=== PATIENT | female | born 1930 | race Caucasian/White ===

== ENCOUNTER 2016-10-13 18:54 | Outpatient (CLI) | payer MEDICARE, OTHER | END 2016-10-13 18:55 | disposition critical access hospital (66) | DX: R42 Dizziness and giddiness (principal); R55 Syncope and collapse; R41.0 Disorientation, unspecified; R53.1 Weakness | CPT/HCPCS: A0425; A0427 ==

== ENCOUNTER 2016-10-13 19:32 | Observation (INO) | payer MEDICARE, OTHER ==
[2016-10-13] MEDS ORDERED: ONDANSETRON 4 MG/2 ML VIAL IVP PRN (21:04)
[2016-10-13] MEDS ORDERED: SODIUM CHLORIDE FLUSH 0.9% 10 ML SYRINGE IVP PRN (21:04)
[2016-10-13] MEDS ORDERED: ACETAMINOPHEN 325 MG TABLET PO PRN (21:04)
[2016-10-13] MEDS ORDERED: oxyCODONE 5 MG TABLET PO PRN (21:04)
[2016-10-13] MEDS ORDERED: SODIUM CHLORIDE 0.9% 1,000 ML IV SCH (22:00)
[2016-10-13] MEDS: SODIUM CHLORIDE FLUSH 0.9% 10 ML SYRINGE IVP SCH (22:04)
[2016-10-14] MEDS: SODIUM CHLORIDE FLUSH 0.9% 10 ML SYRINGE IVP SCH (06:32)
[2016-10-14] MEDS ORDERED: PANTOPRAZOLE 40 MG TABLET PO SCH (07:00)
[2016-10-14] MEDS ORDERED: MULTIVITAMIN TABLET PO SCH (08:00)
[2016-10-14] MEDS ORDERED: ENOXAPARIN 40 MG/0.4 ML SYRINGE SUBQ SCH (09:00)
[2016-10-14] MEDS ORDERED: NON FORMULARY MED (Multivitamin [Multiple Vitamins] 1 TAB) PO SCH (09:00)
[2016-10-14] MEDS ORDERED: POLYETHYLENE GLYCOL 3350 17 GM PACKET PO SCH (09:00)
[2016-10-14] MEDS ORDERED: ASPIRIN EC 81 MG TABLET PO SCH (09:00)
== END 2016-10-14 10:39 | disposition home or self-care (01) ==
DX: R55 Syncope and collapse (principal); E87.1 Hypo-osmolality and hyponatremia; Z86.73 Personal history of transient ischemic attack (TIA), and cerebral infarction without residual deficits; K44.9 Diaphragmatic hernia without obstruction or gangrene; D50.8 Other iron deficiency anemias; Z85.3 Personal history of malignant neoplasm of breast; Z92.21 Personal history of antineoplastic chemotherapy; Z92.3 Personal history of irradiation; Z96.653 Presence of artificial knee joint, bilateral; Z90.49 Acquired absence of other specified parts of digestive tract; Z79.82 Long term (current) use of aspirin; Z79.899 Other long term (current) drug therapy; Z79.01 Long term (current) use of anticoagulants
CPT/HCPCS: 36415; 71010; 80053; 81003; 83690; 84484; 85025; 93005; 93010; 93306; 93880; 99284; A9270; G0378

== ENCOUNTER 2017-03-29 10:08 | Outpatient (CLI) | payer MEDICARE, OTHER ==
--- NOTE | 2017-03-29 15:33 | Nuclear Medicine Report ---
EXAM: BONE SCAN EXAM DATE: 03/29/2017 02:12 PM. CLINICAL HISTORY: L BREAST CANCER. COMPARISON: None available. TECHNIQUE: Following the intravenous administration of 32.9 mCi of technetium 99m MDP and an appropri ate delay, a whole-body scan was performed in anterior and posterior projections. FINDINGS: Exam Quality: Normal overall osseous radiotracer uptake. Physiological tracer uptake in bilateral col lecting systems. Skull: No focal uptake. Thorax: No focal lesions in ribs or sternum. Pelvis: There is intensely increased radiotracer uptake in the left hip. There is moderately increase d uptake in the right hip. Spine: There is an S-shaped thoracolumbar scoliosis. There are small foci of increased uptake on the right and left side of the lower thoracic spine and lumbar spine, pattern most suggestive of degenera tive etiology. There are foci of mild uptake on the right and left side of the mid cervical spine, mo st consistent with degenerative facet uptake. Other: There is photopenia from a right knee prosthesis and what appears to be a medial compartment l eft knee prosthesis. There is increased uptake in the right and left wrist, and in the right first ri b costosternal joint, presumably degenerative. IMPRESSION: 1. Increased uptake in the bilateral hips, left greater than right. Most likely, this is degenerative and less likely metastatic. 2. S-shaped thoracolumbar scoliosis with small foci of increased uptake in the lower thoracic and lum bar spine. Most likely, these are degenerative. 3. Other foci of presumably degenerative uptake as described above. [facility] Referring Provider Line: [phone] SITE ID: [id number]
== END 2017-03-29 10:09 | disposition home or self-care (01) ==
LOC: DI 10:08
PROVIDERS: ATTEND Internal Medicine Hematology & Oncology
DX: C50.912 Malignant neoplasm of unspecified site of left female breast (principal)
CPT/HCPCS: 78306; A9503

== ENCOUNTER 2017-09-20 11:28 | Outpatient (CLI) | payer MEDICARE, OTHER | END 2017-09-20 11:29 | disposition home or self-care (01) | LOC: EMS 11:28 | PROVIDERS: ATTEND Surgery | DX: R55 Syncope and collapse (principal) ==

== ENCOUNTER 2017-10-15 08:00 | Outpatient (CLI) | payer MEDICARE, OTHER ==
[2017-10-15 18:53] LABS: BASOPHILS # (AUTO) 0.1 10^3/uL (0.0-0.1); EOSINOPHILS # (AUTO) 0.5 10^3/uL (0.0-0.7); EOSINOPHILS % (AUTO) 10.4 %; HGB - HEMOGLOBIN 13.4 g/dL (12.0-16.0); LYMPHOCYTES # (AUTO) 1.2 10^3/uL (1.5-3.5); LYMPHOCYTES % (AUTO) 23.6 %; MEAN CORPUSCULAR HEMOGLOBIN 32.9 pg (27.0-31.0); MEAN CORPUSCULAR HGB CONC 33.3 g/dL (32.0-36.0); MEAN CORPUSCULAR VOLUME 98.8 fL (81.0-99.0); MEAN PLATELET VOLUME 8.7 fL (7.9-10.8); MONOCYTES # (AUTO) 0.5 10^3/uL (0.0-1.0); MONOCYTES % (AUTO) 10.3 %; NEUTROPHILS # (AUTO) 2.8 10^3/uL (1.5-6.6); NEUTROPHILS % (AUTO) 53.7 %; PLT - PLATELET COUNT 332 10^3/uL (130-450); RED BLOOD COUNT 4.09 10^6/uL (4.20-5.40); RED CELL DISTRIBUTION WIDTH 12.9 % (12.0-15.0); WHITE BLOOD COUNT 5.2 x10^3/uL (4.8-10.8)
[2017-10-15 19:35] LABS: ALBUMIN 4.5 g/dL (3.2-5.5); ALBUMIN/GLOBULIN RATIO 1.5 (1.0-2.2); BILIRUBIN,TOTAL 0.4 mg/dL (0.2-1.0); CALCIUM 9.2 mg/dL (8.5-10.3); CREATININE 0.6 mg/dL (0.4-1.0); TOTAL PROTEIN 7.5 g/dL (6.7-8.2)
== END 2017-10-15 08:01 | disposition home or self-care (01) ==
LOC: LAB.S 08:00
PROVIDERS: ATTEND Internal Medicine
DX: I63.9 Cerebral infarction, unspecified (principal); C50.919 Malignant neoplasm of unspecified site of unspecified female breast
CPT/HCPCS: 36415; 80053; 85025

== ENCOUNTER 2018-01-14 13:25 | Outpatient (CLI) | payer MEDICARE, OTHER | END 2018-01-14 13:26 | disposition short-term general hospital (02) | LOC: EMS 13:25 | PROVIDERS: ATTEND Surgery | DX: R55 Syncope and collapse (principal); W18.39XA Other fall on same level, initial encounter; Y93.G3 Activity, cooking and baking; Y92.000 Kitchen of unspecified non-institutional (private) residence as the place of occurrence of the external cause | CPT/HCPCS: A0170; A0425; A0427 ==